=== PATIENT | male | born 1985 ===

== ENCOUNTER 2016-03-14 18:40 | Emergency (ER) | payer OTHER ==
--- NOTE | 2016-03-14 19:16 | ED NURSING NOTES ---
Clinical Report - Nurses [facility] [address] [place] [address] 03/14/2016 18:42 Patient: KUSH VARGHESE TRIAGE Triage time 18:53. Acuity: LEVEL 3. Chief Complaint: "FLU", FEVER, COUGH, SORE THROAT and BODY ACHES. Alert. No acute distress. SEPSIS SCREEN: Sepsis Screen: negative. Negative (no infection suspected/documented). --18:57 Sarah Borrero R.N. 18:53 03/14/16. BP: 115/70 taken while sitting. HR: 110. RR: 20. O2 saturation: 99%. Temp: 99 F. Pain level now: 11/23. --18:57 Sarah Borrero R.N. 18:53 03/14/16. BP: 115/70 taken while sitting. HR: 110. RR: 20. O2 saturation: 99%. Temp: 99 F. Pain level now: 11/23. 18:50 03/14/16. BP: 117/78. HR: 115. RR: 22. O2 saturation: 97%. Temp: 99.5 F. Pain level now: 11/23. --18:58 Sarah Borrero R.N. Weight: 99.7 kg stated. Height/Length: 67 inches Per Patient. BMI: 34.5. --18:54 Sarah Borrero R.N. Medications Melatonin 2 TABS, Q HS. Pepto-Bismol Oral 2 tablespoons, PRN, last dose 1415. --19:57 Sarah Borrero R.N. Medication/allergy information source: the patient. --18:57 Sarah Borrero R.N. Allergies NKA. --19:57 Sarah Borrero R.N. History Arrived by private vehicle. Historian: patient and family. Accompanied by family. No primary care physician. Onset. (4 days). He has had contact with a sick individual. He has had chills, fatigue, a headache and vomiting. 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 PAST MEDICAL HX: Immunizations: status is unknown. SOCIAL HX: Never smoker. Occasional alcohol use. History of drug use. Recently used drugs days ago. FALL RISK ASSESSMENT: Fall risk assessment completed. No fall risk identified. NUTRITIONAL RISK ASSESSMENT: The nutritional risk assessment revealed no deficiencies. FUNCTIONAL ASSESSMENT: Functional assessment: no impairments noted. LEARNING NEEDS ASSESSMENT: The learning needs assessment revealed no barriers. SKIN INTEGRITY ASSESSMENT: Skin integrity risk assessment completed. No skin integrity risk identified. --18:57 Sarah Borrero R.N. PROBLEMS: Murmur . --18:56 Sarah Borrero R.N. ADDITIONAL SURGERIES: Dental Surgery. Dental Work. --18:56 Sarah Borrero R.N. Interventions ID band on patient. To room. --18:57 Sarah Borrero R.N. PHYSICAL ASSESSMENT Ambulatory to room. Patient gowned. GENERAL / NEURO / PSYCH: Alert. Oriented X 4. Appears in pain and anxious. HEENT: Mucous membranes are pink. RESPIRATORY: Respirations not labored. CVS: Capillary refill less than 2 seconds. GI / : Abdomen nontender. SKIN: Skin intact. Skin is warm and dry. Normal skin turgor. --18:59 Sarah Borrero R.N. NURSING PROGRESS NOTES Patient gowned. Head of bed elevated. Two patient identifiers checked. Call light placed in reach. Side rails up x 2. Bed placed in lowest position. Brakes of bed on. Patient ready for evaluation. --18:59 Sarah Borrero R.N. Patient ready for evaluation- chart flagged. --18:59 Sarah Borrero R.N. DISPOSITION / DISCHARGE Condition at departure: unchanged. No learning barriers present. Discharge instructions provided and reviewed with the patient and spouse. Work note given. Patient and spouse verbalized understanding. Written instructions provided in Romansh. The patient was discharged home and accompanied by spouse. He left the Emergency Department ambulatory and via private vehicle. Spouse driving. Medication list reviewed and validated. --19:56 Sarah Borrero R.N. 18:53 03/14/16. BP: 115/70 taken while sitting. HR: 110. RR: 20. O2 saturation: 99%. Temp: 99 F. Pain level now: 11/23. 18:50 03/14/16. BP: 117/78. HR: 115. RR: 22. O2 saturation: 97%. Temp: 99.5 F. Pain level now: 11/23. --19:56 Sarah Borrero R.N. Locked/Released at 03/14/2016 19:57 by Sarah Borrero R.N.
--- NOTE | 2016-03-14 19:16 | ED NURSING NOTES ---
Clinical Report - Nurses [facility] [address] [place] [address] 03/14/2016 18:42 Patient: KUSH VARGHESE TRIAGE Triage time 18:53. Acuity: LEVEL 3. Chief Complaint: "FLU", FEVER, COUGH, SORE THROAT and BODY ACHES. Alert. No acute distress. SEPSIS SCREEN: Sepsis Screen: negative. Negative (no infection suspected/documented). --18:57 Sarah Borrero R.N. 18:53 03/14/16. BP: 115/70 taken while sitting. HR: 110. RR: 20. O2 saturation: 99%. Temp: 99 F. Pain level now: 11/23. --18:57 Sarah Borrero R.N. 18:53 03/14/16. BP: 115/70 taken while sitting. HR: 110. RR: 20. O2 saturation: 99%. Temp: 99 F. Pain level now: 11/23. 18:50 03/14/16. BP: 117/78. HR: 115. RR: 22. O2 saturation: 97%. Temp: 99.5 F. Pain level now: 11/23. --18:58 Sarah Borrero R.N. Weight: 99.7 kg stated. Height/Length: 67 inches Per Patient. BMI: 34.5. --18:54 Sarah Borrero R.N. Medications Melatonin 2 TABS, Q HS. Pepto-Bismol Oral 2 tablespoons, PRN, last dose 1415. --19:57 Sarah Borrero R.N. Medication/allergy information source: the patient. --18:57 Sarah Borrero R.N. Allergies NKA. --19:57 Sarah Borrero R.N. History Arrived by private vehicle. Historian: patient and family. Accompanied by family. No primary care physician. Onset. (4 days). He has had contact with a sick individual. He has had chills, fatigue, a headache and vomiting. 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 PAST MEDICAL HX: Immunizations: status is unknown. SOCIAL HX: Never smoker. Occasional alcohol use. History of drug use. Recently used drugs days ago. FALL RISK ASSESSMENT: Fall risk assessment completed. No fall risk identified. NUTRITIONAL RISK ASSESSMENT: The nutritional risk assessment revealed no deficiencies. FUNCTIONAL ASSESSMENT: Functional assessment: no impairments noted. LEARNING NEEDS ASSESSMENT: The learning needs assessment revealed no barriers. SKIN INTEGRITY ASSESSMENT: Skin integrity risk assessment completed. No skin integrity risk identified. --18:57 Sarah Borrero R.N. PROBLEMS: Murmur . --18:56 Sarah Borrero R.N. ADDITIONAL SURGERIES: Dental Surgery. Dental Work. --18:56 Sarah Borrero R.N. Interventions ID band on patient. To room. --18:57 Sarah Borrero R.N. PHYSICAL ASSESSMENT Ambulatory to room. Patient gowned. GENERAL / NEURO / PSYCH: Alert. Oriented X 4. Appears in pain and anxious. HEENT: Mucous membranes are pink. RESPIRATORY: Respirations not labored. CVS: Capillary refill less than 2 seconds. GI / : Abdomen nontender. SKIN: Skin intact. Skin is warm and dry. Normal skin turgor. --18:59 Sarah Borrero R.N. NURSING PROGRESS NOTES Patient gowned. Head of bed elevated. Two patient identifiers checked. Call light placed in reach. Side rails up x 2. Bed placed in lowest position. Brakes of bed on. Patient ready for evaluation. --18:59 Sarah Borrero R.N. Patient ready for evaluation- chart flagged. --18:59 Sarah Borrero R.N. DISPOSITION / DISCHARGE Condition at departure: unchanged. No learning barriers present. Discharge instructions provided and reviewed with the patient and spouse. Work note given. Patient and spouse verbalized understanding. Written instructions provided in Romanian. The patient was discharged home and accompanied by spouse. He left the Emergency Department ambulatory and via private vehicle. Spouse driving. Medication list reviewed and validated. --19:56 Sarah Borrero R.N. 18:53 03/14/16. BP: 115/70 taken while sitting. HR: 110. RR: 20. O2 saturation: 99%. Temp: 99 F. Pain level now: 11/23. 18:50 03/14/16. BP: 117/78. HR: 115. RR: 22. O2 saturation: 97%. Temp: 99.5 F. Pain level now: 11/23. --19:56 Sarah Borrero R.N. Locked/Released at 03/14/2016 19:57 by Sarah Borrero R.N.
--- NOTE | 2016-03-14 19:16 | ED CLINICAL REPORT ---
Clinical Report - Physicians/Mid Levels [facility] [address] [place] [address] 03/14/2016 18:42 Patient: KUSH VARGHESE Time Seen: 1855; initial patient contact, initial documentation, patient care assumed. Arrived- By private vehicle. Historian- patient. HISTORY OF PRESENT ILLNESS Chief Complaint: COUGH, SORE THROAT, FEVER, CHILLS, MUSCLE ACHES and "FLU". This started about 4 days ago and is still present. The illness is described as severe. The patient has had yellow, brown sputum, a cough, a sore throat, nasal congestion and fever. He has had chills, muscle aches and a nasal discharge. No difficulty breathing, chest discomfort or pain, sinus pressure or sinus drainage. No ear pain. Additional history - The patient has had contact with a sick individual. No recent travel. Similar symptoms previously: None. Recent medical care: Not recently seen/assessed. REVIEW OF SYSTEMS All systems otherwise negative, except as recorded above. PAST HISTORY See nurses notes. PROBLEMS: Murmur . --18:56 Sarah Borrero R.N. ADDITIONAL SURGERIES: Dental Surgery. Dental Work. --18:56 Sarah Borrero R.N. SOCIAL HISTORY Never smoker. Occasional alcohol use. History of occasional drug use: marijuana. Second-hand smoke exposure. No recent travel. Is a local resident. FAMILY HISTORY Negative. ADDITIONAL NOTES The nursing notes have been reviewed with agreement regarding the chief complaint, HPI, ROS, PMH and patient medications and allergies. PHYSICAL EXAM Vital Signs: 03/14/2016 18:50 BP: 117/78. HR: 115. RR: 22. O2 saturation: 97%. Temp: 99.5 F. Pain level now: 10/10. Have been reviewed as abnormal and appear to be correct. Blood pressure normal. Tachycardic. Respiratory rate normal. Temperature normal. Oxygen saturation normal. Appearance: Alert. No acute distress. Eyes: Pupils equal, round and reactive to light. Eyes normal inspection. ENT: Ears normal. Nose normal. Pharynx normal. Uvula midline. Neck: Normal inspection. Neck supple. CVS: Heart rate / rhythm abnormal. Tachycardia (ventricular rate = 110). Heart sounds normal. Pulses normal. Respiratory: No respiratory distress. Breath sounds normal. Abdomen: Mildly obese. Back: Normal inspection. Skin: Skin warm and dry. Normal skin color. No rash. Normal skin turgor. Extremities: Extremities exhibit normal ROM. No lower extremity edema. Neuro: Oriented X 3. No motor deficit. No sensory deficit. PROGRESS AND PROCEDURES Patient counseled in person regarding the patient's stable condition and diagnosis. 19:16. Differential Diagnosis: Other possible considerations: flu, viral illness, uri, bronchitis, pneumonia. Above considerations are based on history and physical exam. Differential diagnosis was discussed with patient. Disposition: Discharged home in good and unchanged condition (19:16). Condition: good and stable. CLINICAL IMPRESSION Acute viral rhinitis. INSTRUCTIONS Alternate Tylenol (Acetaminophen) and Motrin (Ibuprofen) for fever, temperature greater than 101 degrees. Take according to label instructions. Do not work today, for two days. Drink plenty of fluids for the next 24 hours until better. Warnings: GENERAL WARNINGS: Return or contact your physician immediately if your condition worsens or changes unexpectedly, if not improving as expected, or if other problems arise. Specifically return if problem worsens. Follow-up: Follow up with your doctor in about five days even if well. Call for an appointment. Summary of care provided to patient. Understanding of the discharge instructions verbalized by patient. (Electronically signed by Venessa Denney A.R.N.P. 03/14/2016 22:04)
--- NOTE | 2016-03-14 22:04 | ED MED RECONCILIATION SUMMARY ---
Patient: KUSH VARGHESE Medication Reconciliation Report [facility] VisitID: [id number] [address] [place] [address] 31y, M Registration Date/Time: 03/14/2016 Weight: 99.7 kg Height/Length: 67 in. BMI: 34.5 ALLERGIES: NKA The patient's Home Medications are listed below: THE FOLLOWING MEDICATIONS NEED TO BE RECONCILED: Melatonin 2 TABS, Q HS Pepto-Bismol Oral 2 tablespoons, PRN, last dose: 1415 The source(s) of the original Home Medication information: patient The following Medications were given to the patient in the Emergency Department: None. The following Medications were prescribed to the patient: None.
--- NOTE | 2016-03-14 22:04 | ED MAR SUMMARY ---
..... Medication Administration Record [facility] [address], [place] [id number] Patient: KUSH VARGHESE Visit ID: [id number] 31y, M Weight: 99.7 kg Height/Length: 67 in BMI: 34.5 ALLERGIES: NKA
--- NOTE | 2016-03-14 22:04 | ED MED RECONCILIATION SUMMARY ---
Patient: KUSH VARGHESE Medication Reconciliation Report [facility] VisitID: [id number] [address] [place] [address] 31y, M Registration Date/Time: 03/14/2016 Weight: 99.7 kg Height/Length: 67 in. BMI: 34.5 ALLERGIES: NKA The patient's Home Medications are listed below: THE FOLLOWING MEDICATIONS NEED TO BE RECONCILED: Melatonin 2 TABS, Q HS Pepto-Bismol Oral 2 tablespoons, PRN, last dose: 1415 The source(s) of the original Home Medication information: patient The following Medications were given to the patient in the Emergency Department: None. The following Medications were prescribed to the patient: None.
--- NOTE | 2016-03-14 22:04 | ED MAR SUMMARY ---
..... Medication Administration Record [facility] [address] [place], [place] [id number] Patient: KUSH VARGHESE Visit ID: [id number] 31y, M Weight: 99.7 kg Height/Length: 67 in BMI: 34.5 ALLERGIES: NKA
--- NOTE | 2016-03-14 22:04 | ED DISCHARGE INSTRUCTIONS ---
Patient: KUSH VARGHESE General Instructions [facility] VisitID: [id number] [place] [address] 31y, M Registration Date/Time: 03/14/2016 Acute viral rhinitis. INSTRUCTIONS Alternate Tylenol (Acetaminophen) and Motrin (Ibuprofen) for fever, temperature greater than 101 degrees. Take according to label instructions. Do not work today, for two days. Drink plenty of fluids for the next 24 hours until better. Warnings: GENERAL WARNINGS: Return or contact your physician immediately if your condition worsens or changes unexpectedly, if not improving as expected, or if other problems arise. Specifically return if problem worsens. Follow-up: Follow up with your doctor in about five days even if well. Call for an appointment. Summary of care provided to patient. Understanding of the discharge instructions verbalized by patient. ADDITIONAL INFORMATION Viral Respiratory Illness [Adult] You have an Upper Respiratory Illness (URI) caused by a virus. This illness is contagious during the first few days. It is spread through the air by coughing and sneezing or by direct contact (touching the sick person and then touching your own eyes, nose or mouth). Most viral illnesses go away within 7-10 days with rest and simple home remedies. Sometimes, the illness may last for several weeks. Antibiotics will not kill a virus and are generally not prescribed for this condition. Home Care: 1) If symptoms are severe, rest at home for the first 2-3 days. When you resume activity, don't let yourself get too tired. 2) Avoid being exposed to cigarette smoke (yours or others). 3) Tylenol (acetaminophen) or ibuprofen (Advil, Motrin) will help fever, muscle aching and headache. (Persons under 18 with fever should not take aspirin since this may cause liver damage.) 4) Your appetite may be poor, so a light diet is fine. Avoid dehydration by drinking 6-8 glasses of fluids per day (water, soft drinks, juices, tea, soup). Extra fluids will help loosen secretions in the nose and lungs. 5) [id number] cold medicines will not shorten the length of time youre sick, but they may be helpful for the following symptoms: cough (Robitussin DM); sore throat (Chloraseptic lozenges or spray); nasal and sinus congestion (Actifed, Sudafed, Chlortrimeton). Follow Up with your doctor or as advised if you dont improve over the next week. Get Prompt Medical Attention if any of the following occur: -- Cough with lots of colored sputum (mucus) or blood in your sputum -- Chest pain, shortness of breath, wheezing or have trouble breathing -- Severe headache; face, neck or ear pain -- Fever over 100.4 F (38.0 C) for more than three days -- You cant swallow due to throat pain Fever Control (Adult) A fever is a natural reaction of the body to an illness. In most cases, the temperature itself is not harmful. It actually helps the body fight infections. A fever does not need to be treated unless you feel very uncomfortable. Home Care If you feel warm, check your temperature. If you feel very uncomfortable and your temperature is at or higher than 100.4F (38C) oral, you may take acetaminophen (Tylenol) every 4 to 6 hours. If you cant take or keep down oral medicine, ask your pharmacist for Tylenol suppositories, which you can get without a prescription. If the fever does not respond to acetaminophen within 1 hour, take ibuprofen (Advil or Motrin). If this works, keep taking the ibuprofen every 6 to 8 hours. Note: If you have chronic liver or kidney disease or ever had a stomach ulcer or GI bleeding, talk with your doctor before using these medications. If either medication alone does not keep the fever down, you may alternate the two medicines every 3 to 4 hours, only if your healthcare provider has instructed you to do so. For example, take Motrin then wait 3 hours, take Tylenol then wait 3 hours, take Motrin, and so on. Follow your healthcare providers instructions exactly. Clothing: Keep clothing light because excess body heat is lost through the skin. The fever will go up if you wear extra layers or wrap in blankets. Fluids: Fever causes the body to lose water through evaporation. Drink plenty of fluids such as water, juice, clear sodas, corey jewel, or lemonade. Do not use aspirin in anyone under 18 years of age who is ill with a fever. It can cause severe liver damage. Follow Up with your doctor or as advised by our staff if you do not get better after 48 hours. Get Prompt Medical Attention if any of the following occur: Fever does not get better after taking fever medication Fast or difficult breathing Earache, sinus pain, stiff or painful neck, headache, repeated diarrhea or vomiting You feel unusually irritable, drowsy, or confused A rash appears You feel weak or dizzy, or that you might faint You have been given the following additional information: Uri, Viral, No Abx (Adult) Fever Control (Adult) Do not work today, for two days. (Electronically signed by Venessa Denney A.R.N.P. 03/14/2016 22:04)
== END 2016-03-14 19:35 | disposition home or self-care (01) ==
LOC: ED SRH 18:40
DX: J00 Acute nasopharyngitis [common cold] (principal); Z77.22 Contact with and (suspected) exposure to environmental tobacco smoke (acute) (chronic)